=== PATIENT | male | born 1985 | race Two or more races ===

== ENCOUNTER 2022-11-03 03:03 | Emergency (ER) | payer BC, OTHER ==
[2022-11-03 03:25] VITALS: BMI 29.0
[2022-11-03 04:45] LABS: BASO % 0.7 % (0-2.0); EOS % 1.1 % (0-4.5); HEMATOCRIT 39.1 % (35.4-49); HEMOGLOBIN 13.1 GM/dL (11.7-16.9); MCH 30.2 pg (25.7-33.7); MCHC 33.6 g/dl (32.0-35.9); MEAN CELL VOLUME 89.9 fl (80-96); MEAN PLT VOLUME 8.5 fl (7.5-11.1); MONO % 7.5 % (3.8-10.2); NEUT % 66.7 % (42.8-82.8); PLATELET COUNT 237 10^3/uL (134-434); RBC 4.34 M/mm3 (4.00-5.60); RDW 13.8 % (11.9-15.9); WHITE BLOOD COUNT 6.2 K/mm3 (4.0-10.0)
[2022-11-03 04:59] LABS: POTASSIUM 4.1 mmol/L (3.5-5.1)
[2022-11-03] MEDS ORDERED: POLYETHYLENE GLYCOL (HEALTHYLAX) 3350 17 GM PACKET PO ONE (05:00)
[2022-11-03 05:01] LABS: CALCIUM 9.1 mg/dL (8.5-10.1)
[2022-11-03 05:02] LABS: BLOOD UREA NITROGEN 15.2 mg/dL (7-18); MAGNESIUM 2.2 mg/dL (1.8-2.4)
[2022-11-03 05:06] LABS: BILIRUBIN,TOTAL 0.8 mg/dL (0.2-1); TOT PROT 7.5 g/dl (6.4-8.2)
[2022-11-03] MEDS ORDERED: POLYETHYLENE GLYCOL (HEALTHYLAX) 3350 17 GM PACKET ONE (06:55)
[2022-11-03 08:31] VITALS: BP 110/65; PULSE 56; RESP 20; TEMP 98.3
== END 2022-11-03 08:36 | disposition home or self-care (01) ==
LOC: JER 03:03
DX: R10.11 Right upper quadrant pain (principal); R11.0 Nausea; K59.00 Constipation, unspecified; A09 Infectious gastroenteritis and colitis, unspecified; R68.83 Chills (without fever)
CPT/HCPCS: 36415; 76705-TC; 80053; 83605; 83690; 83735; 85025; 99284-25